=== PATIENT | male | born 2000 ===

== ENCOUNTER 2020-09-26 06:00 | Outpatient (RCR) | payer OTHER, SELFPAY | END 2020-10-15 23:59 | disposition home or self-care (01) | LOC: MPT 06:00 | PROVIDERS: PCP Family Medicine; Visit Provider Family Medicine | DX: M25.552 Pain in left hip (principal) | CPT/HCPCS: 97110; 97161 ==

== ENCOUNTER 2020-10-16 06:00 | Outpatient (RCR) | payer OTHER, SELFPAY | END 2020-11-15 23:59 | disposition home or self-care (01) | LOC: MPT 06:00 | PROVIDERS: PCP Family Medicine; Visit Provider Family Medicine | DX: M25.552 Pain in left hip (principal) | CPT/HCPCS: 97110; 97140 ==

== ENCOUNTER 2020-11-16 06:00 | Outpatient (RCR) | payer OTHER, SELFPAY | END 2020-12-15 23:59 | disposition home or self-care (01) | LOC: MPT 06:00 | PROVIDERS: PCP Family Medicine; Visit Provider Family Medicine | DX: M25.552 Pain in left hip (principal) | CPT/HCPCS: 97110; 97140 ==

== ENCOUNTER 2021-09-23 19:52 | Emergency (ER) | payer OTHER, SELFPAY ==
--- NOTE | 2021-09-23 20:08 | USR_ITS ---
PROCEDURE INFORMATION: Exam: US Scrotum and US Duplex Artery and Vein, Scrotum, Complete Exam date and time: 09/23/2021 9:35 PM Age: 21 years old Clinical indication: Scrotum pain; Additional info: Aida isded testicular pain, PT in restroom @[id number] TECHNIQUE: Imaging protocol: Real-time ultrasound of the scrotum. Real-time duplex ultrasound scan of the arterial and venous flow of the scrotum with B-mode, color Doppler flow and spectral waveform analysis. Complete exam. Duplex images required to evaluate vascular conditions. COMPARISON: No relevant prior studies available. FINDINGS: Right: The right testicle measures 38 x 24 x 32 mm, estimated volume 15.3 cc. No visible intratesticular mass. Duplex Doppler evaluation, with color flow and spectral waveform analysis, demonstrates intratesticular arterial and venous blood flow. The right epididymis is normal in size and appearance. There is a very small amount of right scrotal fluid. Left: The left testicle measures 44 x 23 x 30 mm, estimated volume 15.9 cc. No visible intratesticular mass. Duplex Doppler evaluation, with color flow and spectral waveform analysis, demonstrates intratesticular arterial and venous blood flow. The left epididymis is normal in size and appearance. There is a very small amount of left scrotal fluid. US/US scrotum [id number] IMPRESSION: 1. No evidence for torsion by Doppler ultrasound. 2. No findings to suggest epididymitis. 3. Very small amount of scrotal fluid bilaterally, unlikely to be significant. 4. Other details discussed above.
[2021-09-23 20:13] VITALS: BP 155/104; PULSE 98; RESP 16; TEMP 37.1; O2SAT 98
[2021-09-23 20:54] LABS: Add Urine Microscopic? YES; Bilirubin Urine Neg (Negative); Blood Urine 3+ (Negative); Glucose Urine UA Norm (Normal); Ketones Urine 1+ (Negative); Leukocyte Esterase Urine Negative (Negative); Nitrate Urine Negative (Negative); Protein Urine Neg (Negative); Urine Appearance Clear (CLEAR); Urine Color Yellow (Yellow); Urobilinogen Urine Norm (Negative); pH Urine 5 (5-7)
[2021-09-23 20:55] LABS: Add Urine Culture? Yes; Bacteria Urine TRACE /hpf; Mucus Urine TRACE /hpf; RBC Urine 15-25 /hpf (0-2); Squamous Epithelial Cell Urine 0-4 /hpf (0-5); WBC Urine 0-4 /hpf (0-5)
[2021-09-23 21:11] LABS: Hematocrit 42.6 % (42.0-52.0); Hemoglobin 14.6 g/dL (11.7-16.6); Mean Corpuscular HGB Conc 34.3 g/dL (30.0-36.0); Mean Corpuscular Hemoglobin 30.2 pg (28.0-34.0); Mean Platelet Volume 10.8 fL (7.4-10.4); Platelet Count 268 10^3/cmm (130-400); Red Blood Count 4.84 10^6/uL (4.1-5.3); Red Cell Distribution Width 12.4 % (12.1-15.1); White Blood Count 17.3 10^3/uL (4.0-10.0)
[2021-09-23 21:32] LABS: Alanine Aminotransferase 54 U/L (0-41); Alkaline Phosphatase 63 IU/L (40-130); Aspartate Amino Transferase 27 U/L (0-40); Blood Urea Nitrogen 12 mg/dL (6-20); Calcium 9.6 mg/dL (8.5-10.5); Carbon Dioxide 23 mmol/L (22-29); Chloride 102 mmol/L (98-107); Glomerular Filtration Rate 83.7 mL/min (90-130); Glucose 99 mg/dL (65-115); Lipase 26 U/L (13-60); Osmolality Calculated 286 mOsm/kg (285-295); Sodium 138 mmol/L (136-145); Total Bilirubin 0.9 mg/dL (0.15-1.2)
[2021-09-23 21:39] LABS: Absolute Eosinophils 1.2 10^3/cmm (0.0-0.7); Absolute Neutrophil 10.2 10^3/cmm (1.4-6.5); Absolute Segmented Neutrophil 10.2 10/cmm (1.6-7.1); Eosinophils 7 %; Lymphocytes 28 %; Lymphocytes Absolute 5.2 10^3/cmm (1.2-3.4); Monocytes Absolute 0.7 10^3/cmm (0.1-0.6); Platelet Estimate Normal (Normal); Segmented Neutrophils 59 %; Total Cells Counted 100 (0-100)
--- NOTE | 2021-09-23 21:54 | W.ED.MALEGU ---
HPI - Male Genitourinary General: Chief complaint: Urogenital-Male Stated complaint: Left Testical Pain Time Seen by Provider: 09/23/21 20:39 Course Vital Signs: Vital signs: Vital Signs Temperature 98.8 F 09/23/21 20:13 Pulse Rate 98 09/23/21 20:13 Respiratory Rate 16 09/23/21 20:13 Blood Pressure 155/104 09/23/21 20:13 Pulse Oximetry 98 09/23/21 20:13 MDM - Male Lab Data : 09/23/21 21:08 09/23/21 21:08 Laboratory Results WBC 17.3 10^3/uL (4.0-10.0) H 09/23/21 21:08 RBC 4.84 10^6/uL (4.1-5.3) 09/23/21 21:08 Hgb 14.6 g/dL (11.7-16.6) 09/23/21 21:08 Hct 42.6 % (42.0-52.0) 09/23/21 21:08 MCV 88.0 fl (80-94) 09/23/21 21:08 MCH 30.2 pg (28.0-34.0) 09/23/21 21:08 MCHC 34.3 g/dL (30.0-36.0) 09/23/21 21:08 RDW 12.4 % (12.1-15.1) 09/23/21 21:08 Plt Count 268 10^3/cmm (130-400) 09/23/21 21:08 MPV 10.8 fL (7.4-10.4) H 09/23/21 21:08 Lymph % (Auto) Not Reportable 09/23/21 21:08 [place] % (Auto) Not Reportable 09/23/21 21:08 Lymph # (Auto) Not Reportable 09/23/21 21:08 [place] # (Auto) Not Reportable 09/23/21 21:08 Total Counted 100 (0-100) 09/23/21 21:08 Atypical Lymphs % 2.0 % (0-5) 09/23/21 21:08 Absolute Neutrophils 10.2 10^3/cmm (1.4-6.5) H 09/23/21 21:08 Segmented Neutrophils 59 % 09/23/21 21:08 Abs Segm Neuts (Man) 10.2 10/cmm (1.6-7.1) H 09/23/21 21:08 Band Neutrophils 0.0 % 09/23/21 21:08 Abs Band Neuts (Man) 0.0 10^3/cmm (0.0-1.2) 09/23/21 21:08 Absolute Lymphocytes 5.2 10^3/cmm (1.2-3.4) H 09/23/21 21:08 Lymphocytes (Manual) 28 % 09/23/21 21:08 Monocytes (Manual) 4.0 % 09/23/21 21:08 Absolute Monocytes 0.7 10^3/cmm (0.1-0.6) H 09/23/21 21:08 Eosinophils (Manual) 7 % 09/23/21 21:08 Absolute Eosinophils 1.2 10^3/cmm (0.0-0.7) H 09/23/21 21:08 Basophils (Manual) 0.0 % 09/23/21 21:08 Absolute Basophils 0.0 10^3/cmm (0.0-0.2) 09/23/21 21:08 Platelet Estimate Normal (Normal) 09/23/21 21:08 Sodium 138 mmol/L (136-145) 09/23/21 21:08 Potassium 4.0 mmol/L (3.5-5.1) 09/23/21 21:08 Chloride 102 mmol/L (98-107) 09/23/21 21:08 Carbon Dioxide 23 mmol/L (22-29) 09/23/21 21:08 Anion Gap 17.0 (5-19) 09/23/21 21:08 BUN 12 mg/dL (6-20) 09/23/21 21:08 Creatinine 1.1 mg/dL (0.7-1.2) 09/23/21 21:08 GFR Calculation 83.7 mL/min (90-130) L 09/23/21 21:08 Glucose 99 mg/dL (65-115) 09/23/21 21:08 Calculated Osmolality 286 mOsm/kg (285-295) 09/23/21 21:08 Calcium 9.6 mg/dL (8.5-10.5) 09/23/21 21:08 Total Bilirubin 0.9 mg/dL (0.15-1.2) 09/23/21 21:08 AST 27 U/L (0-40) 09/23/21 21:08 ALT 54 U/L (0-41) H 09/23/21 21:08 Alkaline Phosphatase 63 IU/L (40-130) 09/23/21 21:08 Total Protein 7.0 g/dL (6.6-8.7) 09/23/21 21:08 Albumin 5.0 g/dL (3.5-5.2) 09/23/21 21:08 Globulin 2.0 g/dL (1.3-4.6) 09/23/21 21:08 Lipase 26 U/L (13-60) 09/23/21 21:08 Urine Color Yellow (Yellow) 09/23/21 20:43 Urine Appearance Clear (CLEAR) 09/23/21 20:43 Urine pH 5 (5-7) 09/23/21 20:43 Ur Specific [place] 1.020 (1.005-1.030) 09/23/21 20:43 Urine Protein Neg (Negative) 09/23/21 20:43 Urine Glucose (UA) Norm (Normal) 09/23/21 20:43 Urine Ketones 1+ (Negative) H 09/23/21 20:43 Urine Blood 3+ (Negative) H 09/23/21 20:43 Urine Nitrate Negative (Negative) 09/23/21 20:43 Urine Bilirubin Neg (Negative) 09/23/21 20:43 Urine Urobilinogen Norm mg/dL (Negative) 09/23/21 20:43 Ur Leukocyte Esterase Negative (Negative) 09/23/21 20:43 Urine RBC 15-25 /hpf (0-2) H 09/23/21 20:43 Urine WBC 0-4 /hpf (0-5) H 09/23/21 20:43 Ur Squamous Epith Cells 0-4 /hpf (0-5) H 09/23/21 20:43 Amorphous Sediment Not Reportable 09/23/21 20:43 Urine Bacteria Trace /hpf (NONE) 09/23/21 20:43 Urine Mucus Trace /hpf 09/23/21 20:43 Discharge Plan Discharge Condition: Stable Referrals: Therese Shen MD [Primary Care Provider] - Coding Level of Care Code ED Drilling Field Specialist for Chg Juany
--- NOTE | 2021-09-23 21:58 | CTR_ITS ---
PROCEDURE INFORMATION: Exam: CT Abdomen And Pelvis Without Contrast Exam date and time: 09/23/2021 10:40 PM Age: 21 years old Clinical indication: Abdominal pain; Generalized; Additional info: Groin pain, possible kideny stone TECHNIQUE: Imaging protocol: Computed tomography of the abdomen and pelvis without contrast. Radiation optimization: All CT scans at this facility use at least one of these dose optimization techniques: automated exposure control; mA and/or kV adjustment per patient size (includes targeted exams where dose is matched to clinical indication); or iterative reconstruction. COMPARISON: No relevant prior studies available. RADIATION DOSE METRICS: Total DLP (mGy-cm): 1532.13 FINDINGS: Lungs: The lung bases are clear. Liver: There is fatty infiltration of the liver. Area of relative fatty sparing in the left lobe. Gallbladder and bile ducts: No definite gallbladder abnormality by CT. No biliary tree dilation. Pancreas: Unremarkable. Spleen: Unremarkable. Adrenal glands: Unremarkable. Kidneys and ureters: Moderate left hydronephrosis and hydroureter. There is a 5 x 6 mm distal left ureteral calculus, at the UVJ. Very mild left perinephric stranding. No visible/definite intrarenal calculus. The right kidney appears essentially unremarkable. Stomach and bowel: No significant bowel distention. There are no CT findings to strongly suggest diverticulitis. Appendix: The appendix is visualized and appears normal. Intraperitoneal space: No free intraperitoneal air, or ascites. Vasculature: No evidence for abdominal aortic aneurysm. Lymph nodes: No retroperitoneal adenopathy. Urinary bladder: The urinary bladder appears essentially unremarkable by CT. Reproductive: Essentially unremarkable for age. Bones/joints: No significant acute finding. Soft tissues: No significant acute finding. CT/CT abdomen pelvis wo con [id number] IMPRESSION: 1. 5 x 6 mm distal left ureteral calculus, at the UVJ. 2. Moderate left hydronephrosis and hydroureter. 3. Other findings discussed above.
--- NOTE | 2021-09-23 22:08 | ED_ITS ---
HPI - General Adult General: Chief complaint: Urogenital-Male Stated complaint: Left Testical Pain Time Seen by Provider: 09/23/21 20:39 History of Present Illness: Patient is a 21-year-old male without any significant past medical presenting to the emergency with complaints of left-s ided testicular pain for the last 2 days. Patient tells me that he began having left-sided testicular pain shortly after having sex. Patient denies any testicular swelling or any trauma groin area. Patient denies any dysuria, polyuria, hematuria. He has no focal abdominal complaints, prior history of renal colic or new penile discharge. Patient has any fever or chills but presents the emergency room for further evaluation. Onset:2 days ago Duration:2 days Location:home Severity:moderate Associated symptoms: Deny chest pain, dyspnea, nausea, rash, palpitations or vomiting Review of Systems Const: Denies: fever(s) or chills Eyes: Denies: change in vision ENMT: Denies: mouth pain Card: Denies: chest pain or palpitations Resp: Denies: dyspnea or non-productive cough GI: Denies: abdominal pain, nausea, vomiting or diarrhea : Reports: other (+L sided testicular pain); Denies: dysuria Musc: Denies: extremity pain Skin/Breast: Denies: rash or new lesions Neuro: Denies: weakness in extremities Psych: Reports: other (Normal mood) Kanu/Lymph: Denies: easy bruising [facility] ED PFSH: Medical History No pertinent past medical history Social History Smoking and tobacco status: never smoked Alcohol intake: never Substance/Drug Use: never Physical Exam Const: COMMON NORMALS: alert HENMT: COMMON NORMALS: atraumatic HEAD & SCALP: atraumatic MOUTH: moist mucous membranes not abnormal Eye: COMMON NORMALS: EOMs intact bilaterally and conjunctivae normal CONJUNCTIVA: Yes conjunctivae normal Neck/C-Spine: COMMON NORMALS: full ROM and supple Resp: COMMON NORMALS: normal respiratory effort and clear to auscultation bilaterally AUSCULTATION: clear to auscultation bilaterally Cardio: COMMON NORMALS: regular rate RATE: regular rate GI: COMMON NORMALS: Soft to palpation and non-tender PALPATION: Yes Soft to palpation : OTHER: Normal external genitalia, Testicles non-tender b/l, no erythema. Cremasteric reflex intact bilaterally, normal testicular lie bilaterally Extremity: COMMON NORMALS: full ROM Neuro: SENSORIUM/ORIENTATION: Yes alert MOTOR EXAM: No Abnormal motor strength present and Other motor observations present (no focal motor deficits) Psych: COMMON NORMALS: speech normal SPEECH: Yes normal speech MOOD & AFFECT: Yes euthymic mood Course Vital Signs: Vital signs: Vital Signs Temperature 98.8 F 09/23/21 20:13 Pulse Rate 98 09/23/21 20:13 Respiratory Rate 16 09/23/21 20:13 Blood Pressure 155/104 09/23/21 20:13 Pulse Oximetry 98 09/23/21 20:13 [facility] - General Adult Medical Decision Making 21-year-old male without any significant past medical history presented to the emergency room with complaints of left-sided testicular pain. Patient has no tenderness palpation of the left testicle. Cremasteric reflex appears to be intact. No signs of testicular infection. Ultrasound did not show any focal findings of testicular torsion or other acute pathologies. Given findings of 3+ hematuria and white count 17.3, decision was made to order CT scan to evaluate for renal colic for possible referred pain to the left testes. Patient received IVF and Toradol. CT of abd+pelvis pending at this time. Case signed out to Dr. Stone. Lab Data : 09/23/21 21:08 09/23/21 21:08 Radiology Impressions Scrotum Ultrasound 09/23/21 20:08 IMPRESSION: 1. No evidence for torsion by Doppler ultrasound. 2. No findings to suggest epididymitis. 3. Very small amount of scrotal fluid bilaterally, unlikely to be significant. 4. Other details discussed above. Laboratory Results WBC 17.3 10^3/uL (4.0-10.0) H 09/23/21 21:08 RBC 4.84 10^6/uL (4.1-5.3) 09/23/21 21:08 Hgb 14.6 g/dL (11.7-16.6) 09/23/21 21:08 Hct 42.6 % (42.0-52.0) 09/23/21 21:08 MCV 88.0 fl (80-94) 09/23/21 21:08 MCH 30.2 pg (28.0-34.0) 09/23/21 21:08 MCHC 34.3 g/dL (30.0-36.0) 09/23/21 21:08 RDW 12.4 % (12.1-15.1) 09/23/21 21:08 Plt Count 268 10^3/cmm (130-400) 09/23/21 21:08 MPV 10.8 fL (7.4-10.4) H 09/23/21 21:08 Lymph % (Auto) Not Reportable 09/23/21 21:08 [place] % (Auto) Not Reportable 09/23/21 21:08 Lymph # (Auto) Not Reportable 09/23/21 21:08 [place] # (Auto) Not Reportable 09/23/21 21:08 Total Counted 100 (0-100) 09/23/21 21:08 Atypical Lymphs % 2.0 % (0-5) 09/23/21 21:08 Absolute Neutrophils 10.2 10^3/cmm (1.4-6.5) H 09/23/21 21:08 Segmented Neutrophils 59 % 09/23/21 21:08 Abs Segm Neuts (Man) 10.2 10/cmm (1.6-7.1) H 09/23/21 21:08 Band Neutrophils 0.0 % 09/23/21 21:08 Abs Band Neuts (Man) 0.0 10^3/cmm (0.0-1.2) 09/23/21 21:08 Absolute Lymphocytes 5.2 10^3/cmm (1.2-3.4) H 09/23/21 21:08 Lymphocytes (Manual) 28 % 09/23/21 21:08 Monocytes (Manual) 4.0 % 09/23/21 21:08 Absolute Monocytes 0.7 10^3/cmm (0.1-0.6) H 09/23/21 21:08 Eosinophils (Manual) 7 % 09/23/21 21:08 Absolute Eosinophils 1.2 10^3/cmm (0.0-0.7) H 09/23/21 21:08 Basophils (Manual) 0.0 % 09/23/21 21:08 Absolute Basophils 0.0 10^3/cmm (0.0-0.2) 09/23/21 21:08 Platelet Estimate Normal (Normal) 09/23/21 21:08 Sodium 138 mmol/L (136-145) 09/23/21 21:08 Potassium 4.0 mmol/L (3.5-5.1) 09/23/21 21:08 Chloride 102 mmol/L (98-107) 09/23/21 21:08 Carbon Dioxide 23 mmol/L (22-29) 09/23/21 21:08 Anion Gap 17.0 (5-19) 09/23/21 21:08 BUN 12 mg/dL (6-20) 09/23/21 21:08 Creatinine 1.1 mg/dL (0.7-1.2) 09/23/21 21:08 GFR Calculation 83.7 mL/min (90-130) L 09/23/21 21:08 Glucose 99 mg/dL (65-115) 09/23/21 21:08 Calculated Osmolality 286 mOsm/kg (285-295) 09/23/21 21:08 Calcium 9.6 mg/dL (8.5-10.5) 09/23/21 21:08 Total Bilirubin 0.9 mg/dL (0.15-1.2) 09/23/21 21:08 AST 27 U/L (0-40) 09/23/21 21:08 ALT 54 U/L (0-41) H 09/23/21 21:08 Alkaline Phosphatase 63 IU/L (40-130) 09/23/21 21:08 Total Protein 7.0 g/dL (6.6-8.7) 09/23/21 21:08 Albumin 5.0 g/dL (3.5-5.2) 09/23/21 21:08 Globulin 2.0 g/dL (1.3-4.6) 09/23/21 21:08 Lipase 26 U/L (13-60) 09/23/21 21:08 Urine Color Yellow (Yellow) 09/23/21 20:43 Urine Appearance Clear (CLEAR) 09/23/21 20:43 Urine pH 5 (5-7) 09/23/21 20:43 Ur Specific [place] 1.020 (1.005-1.030) 09/23/21 20:43 Urine Protein Neg (Negative) 09/23/21 20:43 Urine Glucose (UA) Norm (Normal) 09/23/21 20:43 Urine Ketones 1+ (Negative) H 09/23/21 20:43 Urine Blood 3+ (Negative) H 09/23/21 20:43 Urine Nitrate Negative (Negative) 09/23/21 20:43 Urine Bilirubin Neg (Negative) 09/23/21 20:43 Urine Urobilinogen Norm mg/dL (Negative) 09/23/21 20:43 Ur Leukocyte Esterase Negative (Negative) 09/23/21 20:43 Urine RBC 15-25 /hpf (0-2) H 09/23/21 20:43 Urine WBC 0-4 /hpf (0-5) H 09/23/21 20:43 Ur Squamous Epith Cells 0-4 /hpf (0-5) H 09/23/21 20:43 Amorphous Sediment Not Reportable 09/23/21 20:43 Urine Bacteria Trace /hpf (NONE) 09/23/21 20:43 Urine Mucus Trace /hpf 09/23/21 20:43 Imaging Data Other Imaging: Radiologist's impression: Launch?[facility] [employer] [address] [address] Ultrasound Report Signed Patient: Derian Bryant Unit #: [id number] : 2000 Age/Sex: 21 / M ADM Date: 09/23/21 Loc: ER Room/Bed: Attending Dr: Ordering Provider/Ordering MD: Luis Antonio Bowman MD Date of Service: 09/23/21 Procedure(s): US scrotum [id number] Accession Number(s): [id number] Report Number: [id number] PROCEDURE INFORMATION: Exam: US Scrotum and US Duplex Artery and Vein, Scrotum, Complete Exam date and time: 09/23/2021 9:35 PM Age: 21 years old Clinical indication: Scrotum pain; Additional info: L isded testicular pain, PT in restroom @6005 TECHNIQUE: Imaging protocol: Real-time ultrasound of the scrotum. Real-time duplex ultrasound scan of the arterial and venous flow of the scrotum with B-mode, color Doppler flow and spectral waveform analysis. Complete exam. Duplex images required to evaluate vascular conditions. COMPARISON: No relevant prior studies available. FINDINGS: ?Right: ?The right testicle measures 38 x 24 x 32 mm, estimated volume 15.3 cc. ?No visible intratesticular mass. ?Duplex Doppler evaluation, with color flow and spectral waveform analysis, demonstrates intratesticular arterial and venous blood flow. ?The right epididymis is normal in size and appearance. ?There is a very small amount of right scrotal fluid. ?Left: ?The left testicle measures 44 x 23 x 30 mm, estimated volume 15.9 cc. ?No visible intratesticular mass. ?Duplex Doppler evaluation, with color flow and spectral waveform analysis, demonstrates intratesticular arterial and venous blood flow. ?The left epididymis is normal in size and appearance. ?There is a very small amount of left scrotal fluid. / scrotum [id number] IMPRESSION: 1. No evidence for torsion by Doppler ultrasound. 2. No findings to suggest epididymitis. 3. Very small amount of scrotal fluid bilaterally, unlikely to be significant. 4. Other details discussed above. ? Dictated By: Leonard Montoya MD Signed By: Leonard Montoya MD Signed Date/Time: 09/23/212213 DD/ 34 Discharge Plan Discharge Clinical Impression: Groin pain Condition: Stable Prescriptions: New acetaminophen 500 mg tablet 500 mg PO Q6H PRN (Reason: pain) 5 Days Qty: 20 0RF Referrals: Therese Shen MD [Primary Care Provider] - Coding Level of Care Code ED Artifacts Conservator for Chg Fwd Exam Comprehensive
[2021-09-23] MEDS: sodium chloride 0.9% 1,000 ML 999 ML IV (22:11)
[2021-09-23] MEDS: ketorolac 30 mg/mL INJ IVP (22:12)
[2021-09-24 00:29] VITALS: BP 139/82; PULSE 88; RESP 18; O2SAT 96
== END 2021-09-24 00:30 | disposition home or self-care (01) ==
PROVIDERS: Emergency Medicine; Emergency Provider Emergency Medicine; PCP Family Medicine
DX: R10.32 Left lower quadrant pain (principal)
CPT/HCPCS: 74176; 76870; 80053; 81001; 83690; 85007; 85025; 87086; 96361; 96374; 99285; J1885; J7030

== ENCOUNTER → 2024-10-30 09:42 | Outpatient (BNVA) | payer OTHER, SELFPAY | PROVIDERS: PCP Family Medicine; Visit Provider Orthopaedic Surgery | DX: M71.552 Other bursitis, not elsewhere classified, left hip (principal); S76.812A Strain of other specified muscles, fascia and tendons at thigh level, left thigh, initial encounter; X58.XXXA Exposure to other specified factors, initial encounter | CPT/HCPCS: 73502; 99204 ==